=== PATIENT | male | born 1945 | race Caucasian/White ===

== ENCOUNTER 2017-12-04 06:40 | Inpatient (IN) | payer MEDICARE, OTHER ==
[2017-11-28 12:14] VITALS: BMI 31.4
[2017-12-04] MEDS ORDERED: CEFAZOLIN 2 GM/D5W 2 GM/50 ML ML IVPB ONE (07:02)
[2017-12-04] MEDS ORDERED: GABAPENTIN 300 MG CAPSULE (FP) PO ONE (07:02)
[2017-12-04] MEDS ORDERED: oxyCODONE HCL 10 MG SUSTAINED ACTING TABLET PO ONE (07:02)
[2017-12-04] MEDS ORDERED: CELECOXIB 200 MG CAPSULE PO ONE (07:02)
[2017-12-04] MEDS ORDERED: TRANEXAMIC ACID 1000 MG/10 ML VIAL IVPUSH ONE (07:02)
[2017-12-04] MEDS ORDERED: GABAPENTIN 300 MG CAPSULE (FP) ONE (07:06)
[2017-12-04] MEDS ORDERED: oxyCODONE HCL 10 MG SUSTAINED ACTING TABLET ONE (07:06)
[2017-12-04] MEDS ORDERED: CELECOXIB 200 MG CAPSULE ONE (07:06)
--- NOTE | 2017-12-04 07:51 | HP ---
[facility]ellite [facility] - Chief Complaint Chief Complaint: left hip pain - Past Medical History Allergies/Adverse Reactions: Allergies Allergy/AdvReac Type Severity Reaction Status Date / Time No Known Allergies Allergy Verified 12/04/17 07:19 - Current Medications Current Medications: Home Medications Medication Instructions Recorded Amlodipine Besylate 5 mg PO DAILY 11/28/17 Finasteride [Proscar -] 5 mg PO DAILY 11/28/17 Losartan Potassium 50 mg PO BID 11/28/17 Multivitamin,Ther and Minerals 1 each PO DAILY 11/28/17 [Vitamin and Minerals] Satellite Physical Exam - Physical Examination Vital Signs: Vital Signs Period Temp Pulse Resp BP Sys/Hurtado Pulse Ox Last 24 Hr 98.1 F 56 16 136/79 General Appearance: Well Nourished, Well Developed, Alert & Oriented x3 ENT: Clear Lung: Normal air movement Heart: Regular rate & rhythm Extremities: Other (left hip- + ttp, decr rom, nvi xrays show grade 4 hip djd) Neurological: Intact, Alert, Oriented Satellite Impression/Plan - Impression/Plan Impression: left hip djd Operative Procedure: left nayan thr Date to be Performed: 12/04/17
[2017-12-04] MEDS ORDERED: BUPIVACAINE HCL/PF (5 MG/ML) 30 ML VIAL IJ ONE (08:39)
[2017-12-04] MEDS ORDERED: MIDAZOLAM HCL 2 MG/2 ML SINGLE DOSE VIAL ONE (08:39)
[2017-12-04] MEDS ORDERED: DEXAMETHASONE SOD PHOSPHATE/PF 10 MG/ML SDV ONE (08:39)
[2017-12-04] MEDS ORDERED: BUPIVACAINE 0.75% IN DEXTROSE/PF 2ML AMPULE NR ONE (08:54)
[2017-12-04] MEDS ORDERED: ePHEDrine SULFATE 50 MG/1 ML AMPULE ONE (08:57)
[2017-12-04] MEDS ORDERED: PROPOFOL 20 ML ONE (09:04)
[2017-12-04] MEDS ORDERED: oxyCODONE HCL 5 MG TABLET PO PRN (09:07)
[2017-12-04] MEDS ORDERED: ONDANSETRON 4 MG/2 ML VIAL IVPUSH PRN ×2 (09:11→10:59)
[2017-12-04] MEDS ORDERED: PROMETHAZINE HCL 25 MG/1 ML VIAL IVPUSH PRN (09:11)
[2017-12-04] MEDS ORDERED: ACETAMINOPHEN 325 MG TABLET (FP) PO SCH (09:15)
[2017-12-04] MEDS ORDERED: MAGNESIUM HYDROX 2400MG/30ML ORAL SUSPENSION 30 ML CUP PO PRN (10:59)
[2017-12-04] MEDS ORDERED: MAG HYDROX/AL HYDROX/SIMETH 30 ML UNIT-DOSE CUP PO PRN (10:59)
[2017-12-04] MEDS ORDERED: LACTATED RINGERS SOLUTION 1,000 ML IV SCH (11:00)
--- NOTE | 2017-12-04 11:01 | OP ---
Operative Note - Note: Operative Date: 12/04/17 (ubaldo) Pre-Operative Diagnosis: left hip djd Operation: left nayan thr Post-Operative Diagnosis: Same as Pre-op Surgeon: Morris Kessler Dumpcart Driver: Bradford Sherwood Anesthesia: Spinal, Local Specimens Removed: femoral head Estimated Blood Loss (mls): 150 Operative Report Dictated: Yes
[2017-12-04] MEDS ORDERED: ACETAMINOPHEN 325 MG TABLET (FP) PO ONE (12:03)
[2017-12-04] MEDS: oxyCODONE HCL 10 MG SUSTAINED ACTING TABLET PO SCH ×2 (12:39→21:14)
[2017-12-04] MEDS: GABAPENTIN 300 MG CAPSULE (FP) PO SCH ×2 (12:39→21:14)
--- NOTE | 2017-12-04 14:10 | SPEC ---
DATE OF OPERATION: 12/04/2017 PREOPERATIVE DIAGNOSIS: Degenerative joint disease left hip. POSTOPERATIVE DIAGNOSIS: Degenerative joint disease left hip. PROCEDURE PERFORMED: Left total hip replacement with robotic-assisted navigation (MAKOplasty). SURGICAL ATTENDING: Morris Kessler MD COMMERCIAL RETOUCHER: WILFREDO Fletcher ANESTHESIA: Regional and spinal. CLOSURE: A Otto total hip system with an Accolade II number 6 femur, a +5, 36-mm metallic head, and a 54 Press-Fit Tritanium acetabulum. Number 1 Vicryl for fascia, 0 and 2-0 subcutaneous, 3-0 Monocryl subcuticular with skin glue for skin, 4-0 undyed Vicryl for pin sites. ESTIMATED BLOOD LOSS: Less than 100 mL. COMPLICATIONS: None. CONDITION: To the recovery room in stable condition. DESCRIPTION OF PROCEDURE: The patient was taken to the operating room on December 04, 2017. General and regional anesthesia was administered by the anesthesiologist. IV Kefzol and TXA were administered prophylactically prior to the case. The patient was placed in the lateral decubitus position will all prominences well-padded. The left hip area was prepped and draped in the usual sterile fashion. Using 3 small stab incisions over the iliac crest, 3 threaded pins were drilled in power fashion through the 2 tables of the crest. These pins were fastened and the navigation array for the Santi navigation system. Next, a 12 to 15-cm curved longitudinal incision over the posterolateral aspect of the greater trochanter was incised. Hemostasis was achieved with Bovie cautery. Sharp dissection was carried down to level of the fascia. The fascia was opened the entire length of the incision, spreading the fibers of the gluteus hima in the direction of origin. A Charnley retractor was placed in this layer. Care was taken not to impale the sciatic nerve. The short external rotators were detached off the insertion of the greater trochanter and peeled off the capsule. A posterior capsulotomy was then performed. A check point was malleted into the greater trochanter and a point on the inferior pole of the patella was obtained as well. These 2 points were used to assess the preoperative offset and limb lengths of the hip. The hip was then dislocated. The femoral neck was then osteotomized down to the appropriate level as directed by the navigation device. Anterior and posterior retractors were placed, exposing the acetabulum. A circumferential labral excision was performed. A check point was malleted into the acetabulum as well. Multiple sites inside the acetabulum and around the rim were utilized to register the acetabulum with the navigation device. An excellent registration of less than 0.5 mm was obtained. The hip was then reamed with the appropriate reamer down to the appropriate depth, with the appropriate orientation and version as assessed on our preoperative plan for this patient. The reamer was removed and the acetabulum was inspected to have good bleeding surfaces throughout. The real acetabular cup was then malleted down into place, with the holes in the appropriate position, until an excellent fixation was obtained. No screws were necessary. The navigation device ensured appropriate orientation and version, with the depth as predetermined. The appropriate liner was then clipped into place. Attention was directed to the femur. The proximal femur was prepared by use a box chisel, a canal finder and serial broaches until the broach achieved excellent rigidity in the proximal femur with the appropriate version being applied. A calcar planer was used to smooth off the calcar flush with the trial components. A trial reduction with the appropriate head was done, and the hip was reduced. The hip was taken through a range of motion from full extension with external rotation to marked flexion, and was stable at 90 degrees of flexion. It was stable to marked abduction and internal rotation, with a positive hang test and negative telescoping. Limb lengths were ascertained visually as well as with the navigation device to be within the targeted range for this patient. The trial component was removed. The real component was then malleted into place. The head was cold welded to the trunnion, and the hip was reduced. Range of motion, stability and limb lengths were as described in the trial component. Then the hip was pulse antibiotic irrigated. Vancomycin powder was placed in the hip joint. The capsule was closed. The fascia was then closed as well using number 1 Vicryl interrupted suture, 0 and 2-0 subcutaneous, and 3-0 Monocryl subcuticular with skin glue for the skin. 4-0 undyed Vicryl was used to close the pin sites after the pins were removed. All check points were also removed. Sterile Aquacel dressing was applied. The patient was awakened from anesthesia and transferred into the supine position. Bilateral SCDs and an abduction pillow were placed. X-rays revealed excellent position of the components. The patient was transferred to the recovery room in stable condition, with no complications. Estimated blood loss was less than 100 mL. Antonio LEE/[id number]
[2017-12-04] MEDS: ACETAMINOPHEN 325 MG TABLET (FP) PO SCH (17:18)
[2017-12-04] MEDS: CEFAZOLIN 2 GM/D5W 2 GM/50 ML ML IVPB SCH (17:19)
[2017-12-04] MEDS: oxyCODONE HCL 5 MG TABLET PO PRN (19:50)
[2017-12-04] MEDS: LOSARTAN POTASSIUM 50 MG TABLET (FP) PO SCH (21:14)
[2017-12-04] MEDS: SENNOSIDES/DOCUSATE COMBO (SENNA PLUS) TABLET (UD) PO SCH (21:14)
[2017-12-05] MEDS: ACETAMINOPHEN 325 MG TABLET (FP) PO SCH ×3 (01:57→12:10)
[2017-12-05] MEDS: CEFAZOLIN 2 GM/D5W 2 GM/50 ML ML IVPB SCH (02:00)
[2017-12-05] MEDS: ASPIRIN 325 MG TABLET PO SCH (07:32)
--- NOTE | 2017-12-05 09:31 | PN ---
Progress Note (short form) - Note Progress Note: Ortho Pt seen and examined s/p left nayan thr pod #1 Selected Entries 12/05/17 06:25 Temperature 98.1 F Pulse Rate 59 L Respiratory 18 Rate Blood Pressure 100/56 dressing c/d/i, calf soft, nt nvi cbc pending a/p PT hip precautions dvt ppx pain control d/c home tomorrow if stable
[2017-12-05] MEDS: oxyCODONE HCL 10 MG SUSTAINED ACTING TABLET PO SCH ×2 (10:00→21:34)
[2017-12-05] MEDS: LOSARTAN POTASSIUM 50 MG TABLET (FP) PO SCH ×2 (10:00→21:34)
[2017-12-05] MEDS: amLODIPine BESYLATE 5 MG TABLET (FP) PO SCH (10:05)
[2017-12-05] MEDS: GABAPENTIN 300 MG CAPSULE (FP) PO SCH ×2 (10:10→21:34)
[2017-12-05] MEDS: SENNOSIDES/DOCUSATE COMBO (SENNA PLUS) TABLET (UD) PO SCH ×2 (10:10→21:34)
[2017-12-05] MEDS: FINASTERIDE 5 MG TABLET (FP) PO SCH (10:15)
[2017-12-05] MEDS: PANTOPRAZOLE 40 MG TABLET (FP) PO SCH (10:15)
[2017-12-05] MEDS: MULTIVITAMINS (DAILY MVI) TABLET (FP) PO SCH (10:38)
--- NOTE | 2017-12-05 11:08 | PN ---
Progress Note (short form) - Note Progress Note: 72M POD1 s/p L THR under spinal anesthetic with peripheral nerve blocks. Pt states that pain is well controlled, and reports no anesthetic complications. AVSS. Motor and sensory function intact in bilateral lower extremities. Continue current regimen.
[2017-12-06] MEDS: ACETAMINOPHEN 325 MG TABLET (FP) PO SCH ×2 (00:38→06:07)
[2017-12-06] MEDS: oxyCODONE HCL 5 MG TABLET PO PRN (06:07)
[2017-12-06 06:24] VITALS: BP 114/63; PULSE 62; TEMP 98.8
[2017-12-06 07:44] LABS: HEMATOCRIT 38.2 % (35.4-49); HEMOGLOBIN 12.8 GM/dl (11.7-16.9); MCH 29.5 pg (25.7-33.7); MCHC 33.5 g/dl (32.0-35.9); MEAN CELL VOLUME 88.2 fl (80-96); MEAN PLT VOLUME 12.9 fl (7.5-11.1); PLATELET COUNT 139 K/MM3 (134-434); RBC 4.33 M/mm3 (4.00-5.60); RDW 13.3 % (11.9-15.9); WHITE BLOOD COUNT 9.7 K/mm3 (4.0-10.8)
[2017-12-06] MEDS: ASPIRIN 325 MG TABLET PO SCH (07:55)
--- NOTE | 2017-12-06 08:27 | PN ---
Progress Note (short form) - Note Progress Note: Ortho Pt seen and examined s/p left nayan thr pod #2 Selected Entries 12/06/17 06:00 Temperature 98.8 F Pulse Rate 62 Respiratory 18 Rate Blood Pressure 114/63 Laboratory Tests 12/06/17 07:00 WBC 9.7 Hgb 12.8 Hct 38.2 Plt Count 139 dressing c/d/i, calf soft, nt nvi a/p PT hip precautions dvt ppx pain control d/c home today f/u in 1 week
--- NOTE | 2017-12-06 08:28 | DS ---
Physical Examination Vital Signs: Vital Signs Temperature 98.8 F 12/06/17 06:00 Pulse Rate 62 12/06/17 06:00 Respiratory Rate 18 12/06/17 06:00 Blood Pressure 114/63 12/06/17 06:00 O2 Sat by Pulse Oximetry (%) 97 12/06/17 06:00 Labs: CBC, BMP 12/06/17 07:00 Discharge Summary Reason For Visit: OSTEOARTHRITIS Procedures: Principal: s/p left nayan thr Hospital Course: admitted for elective left nayan tkr, uneventful post-op, stable for d/c Condition: Good - Instructions Diet, Activity, Other Instructions: Post-op Instructions-Total Hip Replacement Call the office for a follow-up appointment in 1 week - [phone] Aspirin 325mg daily for 6 weeks. Pain medication was sent into your pharmacy. Apply Graduated Compression Stockings (TEDs) to both lower extremities- remove daily for hygiene ONLY Apply Sequential Compression Device (SCDs) to both Lower extremities remove for PT and hygiene ONLY Apply cold packs to affected area for 15 minutes every 2 hours. Physical Therapist will come to your home for the first 5 days. You will be set up with outpatient PT at your first post-operative visit. Patient may ambulate as tolerated-encourage self care (at least every 2-3 hours while awake) with walker or cane Maintain Aquacel (waterproof) dressing to operative wound (will be removed by surgeon at first office visit) Shower with Aquacel dressing in place-if Aquacel integrity compromised, remove and apply dry sterile dressing and notify Orthopedist. DO NOT SHOWER unless Orthopedists approves without Aquacel dressing CONTACT THE OFFICE FOR ANY CHANGE IN YOUR CONDITION (for example-fever greater than 102 degrees, excessive bleeding from operative site, purulent drainage, severe swelling or pain) GO TO THE EMERGENCY ROOM IF THERE IS A MEDICAL EMERGENCY Hip Precautions: * Keep a rolled towel under affected heel while in bed or chair (to keep knee in extension) * Dependent upon approach: * Posterior - do not cross legs; do not sit on low chairs or toilets. * If you have any questions, please do not hesitate to call the office - . Referrals: Morris Kessler MD [Staff Physician] - Disposition: VNS/HOME HEALTH CARE - Home Medications Comprehensive Discharge Medication List: Ambulatory Orders Amlodipine Besylate 5 mg PO DAILY 11/28/17 Finasteride [Proscar -] 5 mg PO DAILY 11/28/17 Losartan Potassium 50 mg PO BID 11/28/17 Multivitamin,Ther and Minerals [Vitamin and Minerals] 1 each PO DAILY 11/28/17 Aspirin [ASA -] 325 mg PO DAILY@0800 tablet 12/04/17 Oxycodone HCl/Acetaminophen [Percocet 5-325 mg Tablet -] 1 - 2 tab PO Q6H #50 tab MDD 8 12/04/17
[2017-12-06] MEDS: PANTOPRAZOLE 40 MG TABLET (FP) PO SCH (10:43)
[2017-12-06] MEDS: MULTIVITAMINS (DAILY MVI) TABLET (FP) PO SCH (10:43)
[2017-12-06] MEDS: GABAPENTIN 300 MG CAPSULE (FP) PO SCH (10:43)
[2017-12-06] MEDS: FINASTERIDE 5 MG TABLET (FP) PO SCH (10:43)
[2017-12-06] MEDS: LOSARTAN POTASSIUM 50 MG TABLET (FP) PO SCH (10:43)
[2017-12-06] MEDS: amLODIPine BESYLATE 5 MG TABLET (FP) PO SCH (10:44)
[2017-12-06] MEDS: SENNOSIDES/DOCUSATE COMBO (SENNA PLUS) TABLET (UD) PO SCH (10:44)
[2017-12-06] MEDS: oxyCODONE HCL 10 MG SUSTAINED ACTING TABLET PO SCH (10:44)
--- NOTE | 2017-12-07 11:53 | PATH ---
Surgical Pathology Report Patient Name: LEE PECK Med. Rec. #: [id number] /Age/Gender: 1945 (Age: 72) / M Account: [id number] Location: [facility] MED-SURG Taken: 12/04/2017 Received: 12/04/2017 Reported: 12/07/2017 Physicians: Morris Kessler M.D. Specimen(s) Received LEFT FEMORAL HEAD Clinical History Osteoarthritis Final Diagnosis BONE, LEFT FEMORAL HEAD, PLACEMENT: DEGENERATIVE JOINT DISEASE. Electronically Signed Jonathon Fonseca M.D. Gross Description Received in formalin labelled "left femoral head" is an 8.7 x 5.3 x 5.5 cm portion of bone consistent with a femoral head. The bone at the femoral neck is firm and uniform. The articular cartilage is markedly irregular and there is a 2.4 x 1.3 cm area of eburnation. A small amount of attached soft tissue is present. Border Inspector sections are submitted in one for decalcification [facility]/12/06/2017 [facility]/12/06/2017
== END 2017-12-06 12:15 | disposition home health service (06) | DRG 470 ==
LOC: FM/S 06:40
PROVIDERS: ADMIT Orthopaedic Surgery; ATTEND Orthopaedic Surgery
PROC: 0SRB0JZ Replacement of Left Hip Joint with Synthetic Substitute, Open Approach (ICD-10-PCS; principal; 2017-12-04 09:48)
DX: M16.12 Unilateral primary osteoarthritis, left hip (principal)
CPT/HCPCS: 36415; 73523-TC-FY; 85027; 88304-TC; 88311-TC; 94760; 97116-GP; 97162-GP